=== PATIENT | female | born 1985 | race American Indian/Alaskan Native ===

== ENCOUNTER 2016-05-29 14:41 | Outpatient (CLI) | payer MEDICAID ==
[2016-05-29 16:28] VITALS: BP 123/76
[2016-05-29] MEDS ORDERED: LACTATED RINGERS 500 ML IV ONE (17:12)
[2016-05-29] MEDS ORDERED: MORPHINE PO ONE (19:12)
[2016-05-29] MEDS ORDERED: ZOFRAN IV ONE (19:13)
--- NOTE | 2016-05-30 10:25 | Ultrasound Report ---
BIOPHYSICAL PROFILE: 2 - breathing movements 2 - movements 2 - posture and tone 2 - Qualitative amniotic fluid volume 8 - TOTAL SCORE OF POSSIBLE 8 Heart Rate (bpm) 167 Gestation: Single Position: Cephalic Amniotic Fluid: YESSI = 7.8 cm Placenta: The fundal Placental Grade: 3 Heart Rate: 167 BPM No evidence of placental abruption.
== END 2016-05-29 21:04 | disposition home or self-care (01) ==
LOC: TRG 14:41
PROVIDERS: ATTEND Obstetrics & Gynecology
DX: O46.90 Antepartum hemorrhage, unspecified, unspecified trimester (principal); O42.92 Full-term premature rupture of membranes, unspecified as to length of time between rupture and onset of labor; O77.9 Labor and delivery complicated by fetal stress, unspecified; O47.9 False labor, unspecified; Z3A.00 Weeks of gestation of pregnancy not specified
CPT/HCPCS: 59025; 76815; 76819; 96360; 96361; 96374; J2405; J7120

== ENCOUNTER 2016-06-08 12:12 | Outpatient (CLI) | payer MEDICAID ==
[2016-06-08] MEDS ORDERED: LACTATED RINGERS 2,000 ML ONE (13:29)
[2016-06-08] MEDS ORDERED: CELESTONE SOLUSPAN IM SCH (14:00)
--- NOTE | 2016-06-08 17:10 | History and Physical Report ---
History of Present Illness Date of examination: 06/08/16 Chief complaint: sent from [facility] clinic for prolonged observation History of present illness: Pt is a 30 year old -[place] female ZACKERY 07/02/16 at 36w4d who presents from [facility] clinic because of nonreactive NST and BPP 6/8 at the office. Pt reports irregular contractions but denies vaginal bleeding or leakage of fluid. She has had care at [facility] since 9 wks complicated by Sickle Cell Disease on Morphine sulfate 30 mg PO BID, h/o low lying placenta that resolved, IUGR and polyhydramnios followed by [facility]. She is GBS unknown. Past History Past Medical History: hematologic disorders (Sickle Cell Disease ) Past Surgical History: cholecystectomy, tonsillectomy, other (Port-a-cath placement ) Family/Genetic History: cancer, sickle cell/trait Social history: no significant social history - Obstetrical History Expected Date of Delivery: 07/02/16 Actual Gestation: 36 Week(s) 4 Day(s) : 4 Para: 1 Hx # Term Pregnancies: 0 Number of Pregnancies: 1 Spontaneous Abortions: 0 Induced : 2 Number of Living Children: 1 Medications and Allergies Allergies Allergy/AdvReac Type Severity Reaction Status Date / Time No Known Allergies Allergy Unverified 01/31/16 16:35 Home Medications Medication Instructions Recorded Confirmed Last Taken Type Folic Acid [Folvite] 1 mg PO QDAY #30 02/05/16 05/24/16 05/24/16 08:00 Rx 1 mg Hydromorphone HCl [Dilaudid] 4 mg PO DAILY PRN #60 tablet 02/05/16 05/24/16 10:00 Rx 4 mg Morphine ER [Ms Contin ER] 60 mg PO Q12HR #60 tablet 02/05/16 05/24/16 05/24/16 16:30 Rx 30mg Morphine ER [Ms Contin ER] 30 mg PO BID #60 tablet 05/28/16 Unknown Rx Nystatin [Nystatin SUSP] 10 ml PO TID 10 Days 05/28/16 Unknown Rx Active Meds: Active Medications Betamethasone Acet/Betameth SodPhos (Celestone Soluspan) 12 mg IM Q24HR [facility] Last Admin: 06/08/16 13:55 Dose: 12 mg Review of Systems All systems: negative - Vital Signs Vital signs: Vital Signs Pulse Pulse Ox 94 H 96 06/08/16 12:25 06/08/16 12:25 Temp Pulse Resp BP Pulse Ox 98.8 F 87 14 138/63 99 06/08/16 12:42 06/08/16 16:32 06/08/16 12:42 06/08/16 12:42 06/08/16 16:32 - Physical Exam Breasts: Positive: deferred Cardiovascular: Regular rate Lungs: Positive: Clear to auscultation Abdomen: Positive: soft (gravid ). Negative: tenderness Uterus: Positive: enlarged (gravid ) Extremities: Positive: normal - Obstetrical FHR: auscultation normal Uterine Contraction Monitor Mode: External Uterine Contraction Pattern: Absent Uterine Tone Measurement Phase: Resting Results All other labs normal. Assessment and Plan A: IUP at 36w4d Sickle Cell Anemia IUGR P: Admit for observation. Continuous monitoring. BPP in AM. MFM consult in AM.
[2016-06-08] MEDS ORDERED: MORPHINE PO PRN (18:27)
[2016-06-08] MEDS ORDERED: TYLENOL PO PRN (19:56)
[2016-06-08] MEDS ORDERED: DEEP SEA NS PRN (19:56)
[2016-06-08] MEDS ORDERED: MILK OF MAGNESIA PO PRN (19:56)
[2016-06-08] MEDS ORDERED: AMBIEN PO PRN (19:56)
[2016-06-08] MEDS ORDERED: COLACE PO PRN (19:56)
[2016-06-08] MEDS ORDERED: ZOFRAN IV PRN (19:56)
[2016-06-08] MEDS ORDERED: LACTATED RINGERS 1,000 ML IV SCH (20:00)
[2016-06-08 21:55] LABS: Hematocrit 21.2 % (30.3-42.9); Hemoglobin 6.9 gm/dl (10.1-14.3); Mean Corpuscular HGB Conc 33 % (30-34); Mean Corpuscular Hemoglobin 31 pg (28-32); Mean Corpuscular Volume 94 fl (79-97); Platelet Count 316 K/mm3 (140-440); Red Blood Count 2.25 M/mm3 (3.65-5.03); White Blood Count 18.8 K/mm3 (4.5-11.0)
[2016-06-08 21:58] LABS: Red Cell Distribution Width 29.5 % (13.2-15.2)
[2016-06-08] MEDS ORDERED: MS CONTIN ER PO SCH (22:00)
[2016-06-08 22:41] LABS: Basophils % (Manual) 0 % (0.0-1.8); Blastocytes % (Manual) 0 %; Eosinophils % (Manual) 0 % (0.0-4.3); Total Cells Counted Percent 0
[2016-06-08 22:44] LABS: Anisocytosis 3+
[2016-06-08 22:45] LABS: Sickle Cells 2+; Target Cells 1+
[2016-06-08 22:46] LABS: Poikilocytosis 3+; Smudge Cells 1+
[2016-06-08 22:47] LABS: Giant Platelets 1+
[2016-06-08 22:48] LABS: Polychromasia 1+
[2016-06-08 22:53] LABS: Diff Status Complete; Platelet Estimate Consistent w Auto
--- NOTE | 2016-06-09 07:24 | Ultrasound Report ---
BIOPHYSICAL PROFILE: History: Intrauterine growth restriction Technique: Transabdominal ultrasound with Doppler interrogation. 2 - breathing movements 2 - movements 2 - posture and tone 2 - Qualitative amniotic fluid volume 8 - TOTAL SCORE OF POSSIBLE 8 Heart Rate (bpm) 155
--- NOTE | 2016-06-09 08:04 | Consultation ---
History of Present Illness - Reason for Consult Consult date: 06/09/16 Past History Social history: no significant social history Medications and Allergies Allergies Allergy/AdvReac Type Severity Reaction Status Date / Time No Known Allergies Allergy Unverified 01/31/16 16:35 Home Medications Medication Instructions Recorded Confirmed Last Taken Type Folic Acid [Folvite] 1 mg PO QDAY #30 02/05/16 05/24/16 05/24/16 08:00 Rx 1 mg Hydromorphone HCl [Dilaudid] 4 mg PO DAILY PRN #60 tablet 02/05/16 05/24/16 10:00 Rx 4 mg Morphine ER [Ms Contin ER] 60 mg PO Q12HR #60 tablet 02/05/16 05/24/16 05/24/16 16:30 Rx 30mg Morphine ER [Ms Contin ER] 30 mg PO BID #60 tablet 05/28/16 Unknown Rx Nystatin [Nystatin SUSP] 10 ml PO TID 10 Days 05/28/16 Unknown Rx Active Meds: Active Medications Acetaminophen (Tylenol) 650 mg PO Q4H PRN PRN Reason: Pain MILD(1-3)/Fever >100.5/JUSTIN Docusate Sodium (Colace) 100 mg PO Q12H PRN PRN Reason: Constipation Lactated Ringer's (Lactated Ringers) 1,000 mls @ 125 mls/hr IV DIRECT [facility] Last Admin: 06/09/16 00:24 Dose: 125 mls/hr Magnesium Hydroxide (Milk Of Magnesia) 30 ml PO QHS PRN PRN Reason: Laxative Effect Morphine Sulfate (Ms Contin Er) 30 mg PO Q12HR [facility] Last Admin: 06/08/16 22:43 Dose: 30 mg Multivitamins/Iron/Calcium ( Vitamin) 1 each PO QDAY [facility] Ondansetron HCl (Zofran) 4 mg IV Q6H PRN PRN Reason: Nausea And Vomiting Sodium Chloride (Deep Sea) 2 spray NS Q4H PRN PRN Reason: Congestion Zolpidem Tartrate (Ambien) 10 mg PO ONCE PRN PRN Reason: Sleep Exam - Constitutional Vitals: Temp Pulse Resp BP Pulse Ox 98.3 F 81 16 94/51 91 06/09/16 07:00 06/09/16 07:16 06/09/16 07:00 06/09/16 07:07 06/09/16 07:16 Results - Labs CBC & Chem 7: 06/08/16 21:37 Labs: Abnormal lab results 06/08/16 Range/Units 21:37 WBC 18.8 H (4.5-11.0) K/mm3 RBC 2.25 L (3.65-5.03) M/mm3 Hgb 6.9 L (10.1-14.3) gm/dl Hct 21.2 L (30.3-42.9) % RDW 29.5 H (13.2-15.2) % Seg Neuts % (Manual) 94.0 H (40.0-70.0) % Lymphocytes % (Manual) 3.0 L (13.4-35.0) % Nucleated RBC % 150.0 H (0.0-0.9) % Seg Neutrophils # Man 17.7 H (1.8-7.7) K/mm3 Lymphocytes # (Manual) 0.6 L (1.2-5.4) K/mm3 Assessment and Plan Can be discharged home. Please see full note in paper chart.
--- NOTE | 2016-06-09 08:31 | Progress Note ---
Assessment and Plan A: IUP at 36w5d with BPP /8 on 06/08/16 Sickle Cell Anemia IUGR P: status reassuring. Discharge home with weekly follow up. Subjective - Subjective Date of service: 06/09/16 Principal diagnosis: IUP at 36wks, IUGR, admitted for prolonged observation Interval history: Non overnight events. MFM consulted with recommendation for discharge home with weekly follow up at primary [facility] and MFM offices. Patient reports: movement normal, contractions (irregular), no new complaints, no loss of fluid, no vaginal bleeding Objective - Vital Signs Vital Signs: Vital Signs - 12hr 06/08/16 06/08/16 06/08/16 20:30 20:35 20:40 Temperature Pulse Rate 89 99 H 88 Respiratory Rate Blood Pressure O2 Sat by Pulse 99 99 99 Oximetry 06/08/16 06/08/16 06/08/16 20:45 20:50 20:55 Temperature Pulse Rate 89 85 85 Respiratory Rate Blood Pressure O2 Sat by Pulse 99 99 99 Oximetry 06/08/16 06/08/16 06/08/16 21:00 21:05 21:10 Temperature Pulse Rate 88 95 H 89 Respiratory Rate Blood Pressure O2 Sat by Pulse 99 99 99 Oximetry 06/08/16 06/08/16 06/08/16 21:15 21:20 21:25 Temperature Pulse Rate 88 88 88 Respiratory Rate Blood Pressure O2 Sat by Pulse 99 99 99 Oximetry 06/08/16 06/08/16 06/08/16 21:30 21:35 21:39 Temperature Pulse Rate 84 93 H 88 Respiratory Rate Blood Pressure O2 Sat by Pulse 99 96 92 Oximetry 06/08/16 06/08/16 06/08/16 21:40 21:45 21:50 Temperature Pulse Rate 90 98 H 89 Respiratory Rate Blood Pressure O2 Sat by Pulse 93 93 99 Oximetry 06/08/16 06/08/16 06/08/16 21:55 22:00 22:05 Temperature Pulse Rate 86 88 85 Respiratory Rate Blood Pressure O2 Sat by Pulse 99 99 99 Oximetry 06/08/16 06/08/16 06/08/16 22:10 22:15 22:20 Temperature Pulse Rate 86 99 H 94 H Respiratory Rate Blood Pressure O2 Sat by Pulse 99 95 95 Oximetry 06/08/16 06/08/16 06/08/16 22:25 22:30 22:35 Temperature Pulse Rate 86 99 H 95 H Respiratory Rate Blood Pressure O2 Sat by Pulse 96 94 94 Oximetry 06/08/16 06/08/16 06/08/16 22:40 22:43 22:45 Temperature Pulse Rate 100 H 98 H Respiratory 14 Rate Blood Pressure O2 Sat by Pulse 95 95 Oximetry 06/08/16 06/08/16 06/08/16 22:50 22:55 23:00 Temperature Pulse Rate 104 H 96 H 99 H Respiratory Rate Blood Pressure O2 Sat by Pulse 94 93 93 Oximetry 06/08/16 06/08/16 06/08/16 23:05 23:10 23:15 Temperature Pulse Rate 97 H 99 H 92 H Respiratory Rate Blood Pressure O2 Sat by Pulse 95 94 93 Oximetry 06/08/16 06/08/16 06/08/16 23:20 23:25 23:30 Temperature Pulse Rate 95 H 93 H 92 H Respiratory Rate Blood Pressure O2 Sat by Pulse 94 100 100 Oximetry 06/08/16 06/08/16 06/08/16 23:35 23:40 23:45 Temperature Pulse Rate 89 96 H 90 Respiratory Rate Blood Pressure O2 Sat by Pulse 100 100 100 Oximetry 06/08/16 06/08/16 06/09/16 23:50 23:55 00:00 Temperature Pulse Rate 86 89 90 Respiratory Rate Blood Pressure O2 Sat by Pulse 100 100 100 Oximetry 06/09/16 06/09/16 06/09/16 00:05 00:10 00:15 Temperature Pulse Rate 88 89 89 Respiratory Rate Blood Pressure O2 Sat by Pulse 100 100 100 Oximetry 06/09/16 06/09/16 06/09/16 00:20 00:25 00:30 Temperature Pulse Rate 87 84 86 Respiratory Rate Blood Pressure O2 Sat by Pulse 100 100 100 Oximetry 06/09/16 06/09/16 06/09/16 00:35 00:40 00:45 Temperature Pulse Rate 86 92 H 90 Respiratory Rate Blood Pressure O2 Sat by Pulse 100 99 100 Oximetry 06/09/16 06/09/16 06/09/16 00:50 00:55 01:00 Temperature Pulse Rate 81 85 84 Respiratory Rate Blood Pressure O2 Sat by Pulse 100 100 100 Oximetry 06/09/16 06/09/16 06/09/16 01:11 01:16 01:21 Temperature Pulse Rate 84 85 87 Respiratory Rate Blood Pressure O2 Sat by Pulse 100 100 99 Oximetry 06/09/16 06/09/16 06/09/16 01:26 01:31 01:36 Temperature Pulse Rate 92 H 90 88 Respiratory Rate Blood Pressure O2 Sat by Pulse 100 100 100 Oximetry 06/09/16 06/09/16 06/09/16 01:38 01:41 01:46 Temperature Pulse Rate 92 H 93 H 87 Respiratory Rate Blood Pressure O2 Sat by Pulse 91 99 99 Oximetry 06/09/16 06/09/16 06/09/16 01:51 01:56 02:01 Temperature Pulse Rate 91 H 89 87 Respiratory Rate Blood Pressure O2 Sat by Pulse 99 99 99 Oximetry 06/09/16 06/09/16 06/09/16 02:06 02:11 02:16 Temperature Pulse Rate 89 86 90 Respiratory Rate Blood Pressure O2 Sat by Pulse 99 99 100 Oximetry 06/09/16 06/09/16 06/09/16 02:21 02:26 02:31 Temperature Pulse Rate 82 85 84 Respiratory Rate Blood Pressure O2 Sat by Pulse 100 100 99 Oximetry 06/09/16 06/09/16 06/09/16 02:36 02:41 02:46 Temperature Pulse Rate 83 86 86 Respiratory Rate Blood Pressure O2 Sat by Pulse 98 100 100 Oximetry 06/09/16 06/09/16 06/09/16 02:51 02:56 03:01 Temperature Pulse Rate 81 82 83 Respiratory Rate Blood Pressure O2 Sat by Pulse 100 100 100 Oximetry 06/09/16 06/09/16 06/09/16 03:06 03:11 03:16 Temperature Pulse Rate 80 85 85 Respiratory Rate Blood Pressure O2 Sat by Pulse 100 100 100 Oximetry 06/09/16 06/09/16 06/09/16 03:21 03:26 03:31 Temperature Pulse Rate 83 82 79 Respiratory Rate Blood Pressure O2 Sat by Pulse 100 100 100 Oximetry 06/09/16 06/09/16 06/09/16 03:36 03:41 03:46 Temperature Pulse Rate 80 78 75 Respiratory Rate Blood Pressure O2 Sat by Pulse 100 100 100 Oximetry 06/09/16 06/09/16 06/09/16 03:51 03:56 04:01 Temperature Pulse Rate 82 79 80 Respiratory Rate Blood Pressure O2 Sat by Pulse 100 100 100 Oximetry 06/09/16 06/09/16 06/09/16 04:06 04:11 04:16 Temperature Pulse Rate 81 77 80 Respiratory Rate Blood Pressure O2 Sat by Pulse 100 100 100 Oximetry 06/09/16 06/09/16 06/09/16 04:21 04:26 04:31 Temperature Pulse Rate 75 77 82 Respiratory Rate Blood Pressure 108/60 O2 Sat by Pulse 100 100 100 Oximetry 06/09/16 06/09/16 06/09/16 04:36 04:41 04:46 Temperature Pulse Rate 79 87 82 Respiratory Rate Blood Pressure O2 Sat by Pulse 99 95 94 Oximetry 06/09/16 06/09/16 06/09/16 04:51 04:56 05:01 Temperature 96.1 F L Pulse Rate 85 82 84 Respiratory Rate Blood Pressure O2 Sat by Pulse 96 95 94 Oximetry 06/09/16 06/09/16 06/09/16 05:06 05:09 05:11 Temperature Pulse Rate 85 84 85 Respiratory Rate Blood Pressure O2 Sat by Pulse 94 92 94 Oximetry 06/09/16 06/09/16 06/09/16 05:16 05:21 05:22 Temperature Pulse Rate 96 H 91 H 86 Respiratory Rate Blood Pressure O2 Sat by Pulse 91 94 92 Oximetry 06/09/16 06/09/16 06/09/16 05:26 05:29 05:31 Temperature Pulse Rate 87 86 89 Respiratory Rate Blood Pressure O2 Sat by Pulse 92 92 93 Oximetry 06/09/16 06/09/16 06/09/16 05:36 05:38 05:41 Temperature Pulse Rate 89 91 H 90 Respiratory Rate Blood Pressure O2 Sat by Pulse 93 92 93 Oximetry 06/09/16 06/09/16 06/09/16 05:43 05:46 05:49 Temperature Pulse Rate 95 H 88 87 Respiratory Rate Blood Pressure O2 Sat by Pulse 92 93 92 Oximetry 06/09/16 06/09/16 06/09/16 05:51 05:54 05:56 Temperature Pulse Rate 86 85 89 Respiratory Rate Blood Pressure O2 Sat by Pulse 92 91 93 Oximetry 06/09/16 06/09/16 06/09/16 06:00 06:01 06:06 Temperature Pulse Rate 90 86 87 Respiratory Rate Blood Pressure O2 Sat by Pulse 91 93 93 Oximetry 06/09/16 06/09/16 06/09/16 06:09 06:11 06:14 Temperature Pulse Rate 89 87 92 H Respiratory Rate Blood Pressure O2 Sat by Pulse 92 93 91 Oximetry 06/09/16 06/09/16 06/09/16 06:16 06:20 06:21 Temperature Pulse Rate 90 89 88 Respiratory Rate Blood Pressure O2 Sat by Pulse 91 90 93 Oximetry 06/09/16 06/09/16 06/09/16 06:25 06:26 06:31 Temperature Pulse Rate 87 88 92 H Respiratory Rate Blood Pressure O2 Sat by Pulse 92 93 91 Oximetry 06/09/16 06/09/16 06/09/16 06:36 06:41 06:46 Temperature Pulse Rate 92 H 92 H 90 Respiratory Rate Blood Pressure O2 Sat by Pulse 91 92 93 Oximetry 06/09/16 06/09/16 06/09/16 06:47 06:51 06:54 Temperature Pulse Rate 87 86 85 Respiratory Rate Blood Pressure O2 Sat by Pulse 92 92 92 Oximetry 06/09/16 06/09/16 06/09/16 06:56 07:00 07:01 Temperature 98.3 F Pulse Rate 84 87 90 Respiratory 16 Rate Blood Pressure O2 Sat by Pulse 92 92 92 Oximetry 06/09/16 06/09/16 06/09/16 07:05 07:06 07:07 Temperature Pulse Rate 87 89 89 Respiratory Rate Blood Pressure 94/51 O2 Sat by Pulse 91 91 Oximetry 06/09/16 06/09/16 06/09/16 07:11 07:16 08:27 Temperature Pulse Rate 82 81 83 Respiratory Rate Blood Pressure O2 Sat by Pulse 91 91 93 Oximetry - Exam Breasts: deferred Cardiovascular: Regular rate Lungs: Clear to auscultation Abdomen: Present: soft (gravid ) FHR: auscultation normal Uterine Contraction Monitor Mode: External Uterine Contraction Pattern: Irregular Uterine Tone Measurement Phase: Resting Uterine Contraction Intensity: Mild Extremities: normal - Labs Labs: Abnormal Labs 06/08/16 21:37 WBC 18.8 H RBC 2.25 L Hgb 6.9 L Hct 21.2 L RDW 29.5 H Seg Neuts % (Manual) 94.0 H Lymphocytes % (Manual) 3.0 L Nucleated RBC % 150.0 H Seg Neutrophils # Man 17.7 H Lymphocytes # (Manual) 0.6 L Laboratory Results - last 24 hr 06/08/16 06/08/16 21:37 21:39 WBC 18.8 H RBC 2.25 L Hgb 6.9 L Hct 21.2 L MCV 94 MCH 31 MCHC 33 RDW 29.5 H Plt Count 316 Add Manual Diff Complete Total Counted 100 Seg Neuts % (Manual) 94.0 H Band Neutrophils % 3.0 Lymphocytes % (Manual) 3.0 L Reactive Lymphs % (Man) 0 Monocytes % (Manual) 0 Eosinophils % (Manual) 0 Basophils % (Manual) 0 Metamyelocytes % 0 Myelocytes % 0 Promyelocytes % 0 Blast Cells % 0 Nucleated RBC % 150.0 H Seg Neutrophils # Man 17.7 H Band Neutrophils # 0.6 Lymphocytes # (Manual) 0.6 L Abs React Lymphs (Man) 0.0 Monocytes # (Manual) 0.0 Eosinophils # (Manual) 0.0 Basophils # (Manual) 0.0 Metamyelocytes # 0.0 Myelocytes # 0.0 Promyelocytes # 0.0 Blast Cells # 0.0 WBC Morphology Not Reportable Hypersegmented Neuts Not Reportable Hyposegmented Neuts Not Reportable Hypogranular Neuts Not Reportable Smudge Cells 1+ Toxic Granulation Not Reportable Toxic Vacuolation Not Reportable Dohle Bodies Not Reportable Pelger-Huet Anomaly Not Reportable Akin Rods Not Reportable Platelet Estimate Consistent w auto Clumped Platelets Not Reportable Plt Clumps, EDTA Not Reportable Large Platelets Not Reportable Giant Platelets 1+ Platelet Satelliting Not Reportable Plt Morphology Comment Not Reportable RBC Morphology Not Reportable Dimorphic RBCs Yes Polychromasia 1+ Hypochromasia Not Reportable Poikilocytosis 3+ Anisocytosis 3+ Microcytosis Not Reportable Macrocytosis Not Reportable Spherocytes Not Reportable Pappenheimer Bodies Not Reportable Sickle Cells 2+ Target Cells 1+ Tear Drop Cells Not Reportable Ovalocytes Not Reportable Helmet Cells Not Reportable [place] Bodies Not Reportable [place] Rings Not Reportable Isaias Cells Not Reportable Bite Cells Not Reportable Crenated Cell Not Reportable Elliptocytes Not Reportable Acanthocytes (Spur) Not Reportable Rouleaux Not Reportable Hemoglobin C Crystals Not Reportable Schistocytes Not Reportable Malaria parasites Not Reportable Maximus Bodies Not Reportable Hem Pathologist Commnt No Blood Type B POSITIVE Antibody Screen Negative - Results US- obstetric: report reviewed
--- NOTE | 2016-06-09 08:33 | Discharge Summary ---
Providers - Providers Date of Admission: 06/08/16 Date of discharge: 06/09/16 Attending physician: VENKATA TORRES 06/08/16 16:30 Consult to Physician [CONS] ONCE Consulting Provider: REGINA SALDIVAR Reason For Exam: IUGR, INTRAUTERINE GROWTH DELAY, SICKLE CELL DIS Place [facility] Phone number called:: [phone] Was contact made?: Yes If yes, spoke with:: KEERTHI Time called:: 16:06 Comment:: KEERTHI STATED SHE WILL CALL DR. WALL Primary care physician: VENKATA TORRES Hospitalization Reason for admission: other (observation, prolonged monitoring ) Hospital course: The patient was initially admitted for prolonged observation after nonreactive NST and BPP 6 out of 8. She was observed on continuous monitoring and had a repeat BPP on the day of admission that was 8 out of 8. She was continued on continuous monitoring overnight without any issues. The patient was then discharged home with instructions to follow-up with M and her primary [facility] next week. Condition at discharge: Stable Disposition: DISCHARGED TO HOME OR SELFCARE - Discharge Diagnoses (1) Sickle cell anemia of mother during Status: Acute (2) Intrauterine growth restriction, Status: Acute (3) Status: Acute Qualifiers: Weeks of gestation: 36 weeks Qualified Code(s): Z3A.36 - 36 weeks gestation of Plan - Provider Discharge Summary Activity: routine Diet: routine Instructions: routine Additional instructions: [] Smoking cessation referral if applicable(refer to patient education folder for contact #) [] Refer to [facility] Booklet Call your doctor immediately for: * Fever > 100.5 * Heavy vaginal bleeding ( >1 pad per hour) * Severe persistent headache * Shortness of breath * Reddened, hot, painful area to leg or breast * Drainage or odor from incision. * Keep incision clean and dry at all times and follow doctor's instructions regarding bathing/showering - Follow up plan Follow up: SENDY GARCIA CNM [Advanced Practice Nurse] - 7 Days REGINA SALDIVAR MD [Staff Physician] - 7 Days
[2016-06-09 09:33] VITALS: BP 111/63
[2016-06-09] MEDS ORDERED: PRENATAL VITAMIN PO SCH (10:00)
== END 2016-06-09 09:30 | disposition home or self-care (01) ==
LOC: TRG 12:12 → LD 12:13 → TRG 06-09 09:30
PROVIDERS: ATTEND Obstetrics & Gynecology
DX: O36.5930 Maternal care for other known or suspected poor fetal growth, third trimester, not applicable or unspecified (principal); O47.03 False labor before 37 completed weeks of gestation, third trimester; Z3A.36 36 weeks gestation of pregnancy
CPT/HCPCS: 36415; 76819; 85007; 85025; 86850; 86900; 86901; 96360; 96372; J0702; J7120